=== PATIENT | male | born 1965 | race Caucasian/White ===

== ENCOUNTER → 2016-07-19 | Outpatient (CLI) | payer OTHER ==
--- NOTE | 2016-07-19 20:02 | MR ---
MRI brain with and without contrast HISTORY: Traumatic brain injury, headaches and decreased vision, memory loss, Z 87.820 Multiplanar multisequence and postcontrast images through the brain following 20 cc MultiHance IV No comparisons The corpus callosum, pituitary, cervical medullary junction, cerebellopontine angles are within sigrid l limits. Brain signal is maintained. There is no hemorrhage or hydrocephalus. There are normal vascu lar flow voids and vascular enhancement following contrast administration. Minimal mucosal disease pr esent in the right maxillary sinus. The orbits show a symmetric appearance. No abnormal enhancement f ollowing contrast administration. There is no restricted diffusion to suggest subacute ischemia. IMPRESSION: No significant abnormality evident to account for patient's symptoms.
== END | disposition home or self-care (01) ==
LOC: RADMRIMAIN 16:51
PROVIDERS: ATTEND Psychiatry & Neurology Neurology
DX: G44.209 Tension-type headache, unspecified, not intractable (principal); G44.309 Post-traumatic headache, unspecified, not intractable; Z87.820 Personal history of traumatic brain injury
CPT/HCPCS: 70553; A9577

== ENCOUNTER 2022-03-09 07:30 | Day surgery (SDC) | payer OTHER ==
[2022-03-07 13:26] VITALS: BMI 29.8
[~2022-03-09 07:30] MED LIST: LACTATED RINGERS 1,000 ML IV SCH
[2022-03-09] MEDS ORDERED: LACTATED RINGERS 1,000 ML IV ONE (07:54)
[2022-03-09 08:06] VITALS: RESP 16; TEMP 98.5
[2022-03-09] MEDS ORDERED: MIDAZOLAM 2 MG/2 ML VIAL ONE (09:05)
[2022-03-09] MEDS ORDERED: LIDOCAINE 2% INJ 20 MG/ML (2 ML VIAL) ONE (09:05)
[2022-03-09] MEDS ORDERED: PROPOFOL 10 MG/ML 20 ML VIAL IV ONE (09:05)
[2022-03-09] MEDS ORDERED: fentaNYL (PF) 50 MCG/ML 2 ML AMP ONE (09:05)
--- NOTE | 2022-03-09 09:22 | P.PCN ---
Date of Procedure: 03/09/22 Procedure(s) Performed: Brief history: Patient is a pleasant 57-year-old white male scheduled for an elective upper endoscopy as well as colonoscopy as a part of evaluation of GERD/epigastric pain/nausea vomiting and change in bowel habits for the last several years duration. Procedure performed: Esophagogastroduodenoscopy with biopsy Colonoscopy Preoperative diagnosis: Epigastric pain/intermittent nausea vomiting and lump in the throat Change in bowel habits Anesthesia: MAC Procedure: After informed consent was obtained from the patient was brought into the endoscopy unit and IV sedation was administered by anesthesia under continuous monitoring. Initially upper endoscopy was done. The Olympus GF 160 video endoscope was inserted inserted into the mouth and esophagus intubated without any difficulty and was gradually advanced into the stomach and duodenum and carefully examined. The bulb and second part of the duodenum appeared normal. The scope was then withdrawn into the stomach adequately insufflated with air and upon careful examination the antrum had mild gastritis and biopsies were done from this area. Mucosa of the body, cardia and fundus appeared normal. The scope was then withdrawn into the esophagus. The GE junction was located at 40 cm to the incisors. It appeared regular with no erythema erosions or ulcerations. Rest of the esophagus appeared normal. The proximal cervical esophagus was carefully examined and appeared normal. Abscesses were done from the distal esophagus. Patient tolerated the procedure well. At this time the patient continued to remain sedation. Initial digital rectal examination was normal. Olympus CF 160 video colonoscope was then inserted into the rectum and gradually advanced to the cecum without any difficulty. Careful examination was performed as the scope was gradually being withdrawn. The prep was excellent. The cecum, ascending colon, transverse colon, descending colon, sigmoid colon and rectum appeared normal. Retroflexion was performed in the rectum and no lesions were noted. Patient tolerated the procedure well. Impression: 1. Upper endoscopy revealed mild antral gastritis but no evidence of esophagitis or Del Castillo's esophagus 2. Colonoscopy was within normal limits with no evidence of colorectal ne oplasia Recommendations: Findings of this examination were discussed with the patient as well as his family. He was advised to follow with the biopsy results. In the meantime continue with her medications and follow antireflux measures. He was advised to have a repeat screening colonoscopy in 10 years.
[2022-03-09 09:46] VITALS: BP 137/89; PULSE 69
== END 2022-03-09 10:04 | disposition home or self-care (01) ==
LOC: ORWHC2ENDO 07:30
PROVIDERS: ATTEND Internal Medicine Gastroenterology
DX: K29.50 Unspecified chronic gastritis without bleeding (principal); K21.00 Gastro-esophageal reflux disease with esophagitis, without bleeding; R19.4 Change in bowel habit; I10 Essential (primary) hypertension; J39.2 Other diseases of pharynx; G47.33 Obstructive sleep apnea (adult) (pediatric); Z79.82 Long term (current) use of aspirin; Z79.891 Long term (current) use of opiate analgesic; Z79.811 Long term (current) use of aromatase inhibitors; Z98.890 Other specified postprocedural states
CPT/HCPCS: 88305; 45378; 43239; J2250; J3010; J2704; J2001